=== PATIENT | female | born 1985 | race Caucasian/White ===

== ENCOUNTER 2018-05-12 18:50 | Outpatient (CLI) | payer OTHER, SELFPAY ==
[2018-05-12 19:34] LABS: Color, Urine Yellow (Yellow); Glucose, Dipstick Normal (Normal); Ketone-Dipstick Negative (Negative); Leukocyte Esterase-Dipstick 25 /ul (Negative); Nitrite-Dipstick Negative (Negative); Occult Blood-Urine Negative /ul (Negative); Protein-Dipstick Negative (Negative); Urine Bilirubin Dipstick Negative (Negative); Urine Clarity Clear (Clear); Urine Urobilinogen Normal (Normal); Urine pH 6.5 (5.0 - 8.0)
[2018-05-12 19:54] LABS: ROM Internal Control Test YES-OK TO RESULT pt. (Internal QC); ROM Patient Test Negative (Negative)
[2018-05-12 19:55] LABS: Record Kit Lot#, ROM+ J7836
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
== END 2018-05-12 20:50 | disposition home or self-care (01) ==
LOC: WPOUT 18:54 → WP 18:55
PROVIDERS: Family Provider Student in an Organized Health Care Education/Training Program; PCP Student in an Organized Health Care Education/Training Program; Referring Provider Obstetrics & Gynecology; Visit Provider Obstetrics & Gynecology
DX: O71.89 Other specified obstetric trauma (principal); Z3A.30 30 weeks gestation of pregnancy
CPT/HCPCS: 59025; 59050; 81002; 84112; 99218; G0378

== ENCOUNTER 2018-07-19 21:00 | Inpatient (IN) | payer OTHER, SELFPAY ==
[2018-07-19 20:27] VITALS: BMI 36.3
[2018-07-19 20:55] LABS: ROM Internal Control Test YES-OK TO RESULT pt. (Internal QC)
[2018-07-19 20:56] LABS: ROM Patient Test POSITIVE (Negative)
[2018-07-19] MEDS: Lactated Ringers 1,000 ML 50 ML IV ×2 (21:30→22:53)
[2018-07-19 21:55] LABS: Absolute Lymphocyte Count 2.72 X10^3/ul (0.83-4.51); Absolute Neutrophil Count 8.3 X10^3/uL (2.0-7.7); Basophil# 0.01 X10^3/uL; Basophil% 0.1 % (0-1); Eosinophil# 0.06 X10^3/uL; Eosinophils% 0.5 % (0-5); Hematocrit 33.9 % (37-47); Hemoglobin 11.6 g/dl (12.0-15.0); Lymphocyte # 2.72 X10^3/ul (4.0); Lymphocyte % 22.8 % (19-41); Mean Corp Hgb Conc 34.2 g/gl (32-36); Mean Corpuscular Hgb 32.4 pg (27.0-32.0); Mean Corpuscular Volume 94.7 fL (81-99); Mean Platelet Vol. 9.6 fl (6.2-12.0); Monocyte# 0.82 X10^3/uL; Monocyte% 6.9 % (0-10); Neutrophil % 69.4 % (47-70); Platelet Count 244 K/mm3 (150-450); RBC Distribution Width CV 12.8 % (11.6-14.6); RBC Distribution Width SD 43.7 fl (35.1-43.9); Red Blood Count 3.58 M/mm3 (4.2-5.4)
[2018-07-19 21:58] LABS: POSITIVE COUNT NO; POSITIVE DIFFERENTIAL NO; POSITIVE MORPHOLOGY NO
[2018-07-19] MEDS: Oxytocin 30 units/NS 500 ml 30 UNITS/500 ML IV.SOLN IV (23:01)
[2018-07-20] MEDS: fentaNYL-bupivacaine (epidural) 100 ML BAG EPIDURAL (00:52)
[2018-07-20] MEDS: Oxytocin 30 units/NS 500 ml 30 UNITS/500 ML IV.SOLN 334 UNITS IV (02:50)
--- NOTE | 2018-07-20 03:10 | PCM.HP.OB ---
- Problem List (1) 39 weeks gestation of Status: Acute (2) AMA (advanced maternal age) multigravida 35+ Status: Acute History Date of Admission: 07/20/18 Final KALEB: 07/20/18 Gestational age: 40 Weeks and 0 Days History of this : This is a 33 year-old, G2, P1001, who presents at 39w6d gestational age with SROM at home for clear fluid. +Irregular ctx's. Medical History: Medical History (Last Updated 07/20/18 @ 03:12 by Salma Lund DO) Anemia affecting O99.019 Asymptomatic bacteriuria during O99.89, R82.71 Family history of neurofibromatosis Z82.79 Allergies Sulfa (Sulfonamide Antibiotics) Adverse Reaction (Verified 07/19/18 20:29) Vomiting Home Medications: Home Medications Cholecalciferol (Vitamin D3) [Vitamin D3] 6,000 unit PO DAILY 06/15/15 Vits [Prenatabs FA ] 1 tablet PO DAILY 06/15/15 Ferrous Sulfate DAILY 05/12/18 Smoking Status: Never smoker Number of Fetus(es): 1 Heart Tracing: Category 1 TOCO Analysis: +Irregular ctx's History Past Pregnancies: Past Pregnancies Delivery Date Name GA/Weeks Outcome Route Weight Infant Gender Labor Length Anesthesia Delivery Location Provider FOB 39 7lb 12oz Labs: GBS pos Rh pos RI Syphilis neg HIV neg Hep B neg 1 hr GTT WNL Hgb 10.5 Expected Delivery Method: Spontaneous Vaginal Review of Systems Gynecological: Reports: - - +LOF Physical Exam General: Alert, No apparent distress HEENT: Atraumatic Lungs: - - No increased resp effort Abdomen: Soft, Gravid Extremities:: No edema Neurological: Neuro grossly intact [employer]: Normal external genitalia Estimated gestational size: Appropriate for gestational size Presentation: Cephalic Cervix Dilation (cm): 3 - per RN on admission Assessment/Plan All Active Problems 39 weeks gestation of (Acute) AMA (advanced maternal age) multigravida 35+ (Acute) This is a 33 year-old, G2, P1001, at 39 weeks gestational age who presents from home with SROM for clear fluid. - Admit to L&D for routine intrapartum care for PROM - Pitocin if no cervical change - PCN for GBS positive - Epidural prn
[2018-07-20] MEDS: Oxytocin 30 units/NS 500 ml 30 UNITS/500 ML IV.SOLN 167 UNITS IV (03:20)
--- NOTE | 2018-07-20 03:30 | OP.PCM_ITS ---
Problem List (1) 39 weeks gestation of Status: Acute (2) AMA (advanced maternal age) multigravida 35+ Status: Acute Report of Operation Date of Procedure: 07/20/18 Pre-Operative Diagnosis: PROM at 39 weeks, AMA Post-Operative Diagnosis: As above Surgery/Procedure Performed:: Description of Surgical Findings:: Male in ROP position. Loose nuchal cord x 1. Clear fluid. Intact and normal appearing placenta with 3 vessel cord Type of Anesthesia:: Epidural Special Medications: None Specimen's removed: Placenta Drains: Kim Estimated Blood Loss (mL): 200 Description of Procedure: Patient presented to L&D with PROM. She was 3 cm with irregular ctx's. Pitocin was started and titrated to 4 mu/min. Patient progressed to complete. Complete and pushing with delivery of head, shoulders, and body of infant without force or delay. VMI delivered atraumatically and placed on mother's abdomen. Cord was clamped and cut by FOB after 60 sec delay. Placenta delivered intact with ut erine massage. Uterus explored x 1 with no retained products noted. Bleeding hemostatic and fundus firm. 2nd degree perineal laceration repaired in usual sterile fashion. Grafts/Implants Used: None - Complications None - Admit VTE Documentation VTE Present on Admission: No VTE Mechan Device Prophylaxis: None VTE Pharm Prophylaxis ordered?: No Vaginal Delivery Maternal Presentation: Spontaneous Rupture of Membranes Method of Induction: Pitocin Amniotic Membrane Rupture Type: Spontaneous at home Amniotic Fluid Description: Clear Final KALEB: 07/20/18 Gestational age: 40 Weeks and 0 Days Date of Procedure: 07/20/18 Pre-Operative Diagnosis: PROM at 39 wks gestation, AMA Post-Operative Diagnosis: As above, delivered at 40 wks gestation Surgery/ Procedure Performed: Spontaneous Vaginal Delivery Type of Anesthesia: Epidural Presentation: ROP Placental Delivery Description: Expressed Cord Vessel Description: 3 Vessels Nuchal Cord Compression: Without compression Cord Entanglement: Around neck x 1, loose Estimated Blood Loss: Kim Infant A gender: Male (1 minute): 9 (5 minute): 9 Episiotomy Description: None Laceration: 2nd degree Medications given after delivery: IV Pitocin Complications: None
[2018-07-20] MEDS: Ondansetron 4 MG/2 ML Vial IV (03:55)
[2018-07-20] MEDS: Ibuprofen 600 MG Tablet PO ×3 (03:58→19:08)
[2018-07-20] MEDS: 0.9% Saline Lock 10 ML Syringe IV (04:23)
[2018-07-20 08:45] VITALS: BP 111/68; PULSE 74; RESP 20; TEMP 36.7; O2SAT 97
[2018-07-20 13:01] VITALS: BP 113/51; PULSE 67; TEMP 36.9
[2018-07-20 16:00] VITALS: PULSE 66; RESP 18; TEMP 37.1
[2018-07-20 16:20] VITALS: BP 117/50; PULSE 70
[2018-07-20 19:30] VITALS: BP 112/52; PULSE 68; RESP 18; TEMP 37.1
[2018-07-20] MEDS: Senna/Docusate Sodium 1 Tablet PO (20:50)
[2018-07-20] MEDS: Acetaminophen 500 MG Tablet 1000 MG PO (23:45)
[2018-07-21] VITALS: BP 110/72; PULSE 62; RESP 18; TEMP 37
--- NOTE | 2018-07-21 07:20 | PCM.PN.OB ---
Patient Problems: Active and Suspected Problems (Last Updated 07/20/18 @ 03:12 by Salma Lund DO) 39 weeks gestation of (Acute) AMA (advanced maternal age) multigravida 35+ (Acute) Subjective: Patient doing well. Pain controlled. Lochia normal. No lightheadedness, dizziness, CP, SOB, leg pain. Ambulating and voiding without difficulty. Gina reg diet without N/V. without complaints - Physical Exam General: Alert, No apparent distress HEENT: Atraumatic Lungs: - - No increased resp effort Abdomen: Soft, Non Tender, - - FF Extremities: No Calf Tenderness Skin: No rashes Neurological: Neuro grossly intact Psych/Mental Status: Normal Affect, Appropriate Vital Signs Temp Pulse Resp BP Pulse Ox 98.6 F 62 18 110/72 97 07/21/18 00:00 07/21/18 00:00 07/21/18 00:00 07/21/18 00:00 07/20/18 08:45 Oxygen Delivery Method Room Air Weight: 206 lb 12.697 oz Body Mass Index (BMI) 36.3 Intake and Output for Last 24 Hours 07/19/18 07/20/18 07/21/18 23:59 23:59 23:59 Intake Total 2261 / 2261 Output Total 1800 / 1800 Balance 461 / 461 Medical Necessity - Tobacco Use Smoking Status: Never smoker Assessment/Plan All Active Problems (Last Updated 07/20/18 @ 03:12 by Salma Lund DO) 39 weeks gestation of (Acute) AMA (advanced maternal age) multigravida 35+ (Acute) PPD#1 s/p - Doing well - Pt desires to go home today - D/c home with discharge instructions and follow up reviewed
--- NOTE | 2018-07-21 07:24 | DCINST_ITS ---
Discharge Diet: No Restrictions Discharge Activity: May Shower, May Take a Tub Bath May resume sexual activity in: 6 weeks Weight Bearing Status: Full weight bearing Lifting Restrictions: None Call your doctor if you observe: Fever of 101 or Higher, Inability to urinate, Inability to have a bowel movement, Using more than one pad per hour, Shortness of breath, Dizziness, Chest pain, Increased palpitations (irregular heartbeat), Calf discomfort, Uncontrolled pain Instructions: After a Vaginal Additional Instructions: If you experience any of the following, contact your healthcare provider. * Bleeding that soaks a pad every hour for 2 hours * Fever 100.4 or higher * Unrelieved incision or abdominal pain * Swelling, redness, discharge or bleeding from your incision or episiotomy site * Your incision begins to separate * Problems urinating (including inability to urinate or burning while urinating). * Visual changes * Severe headache * Flu-like symptoms * Pain or redness in one of both of your breasts * Pain, warmth, tenderness or swelling in your legs, especially the calf area * Frequent nausea and vomiting * Symptoms of depression or anxiety If you experience any of the following, call 911 or go to the nearest Emergency Room. * Chest pain * Problems breathing * Seizure activity * Partial or complete paralysis of a body part, slurred speech, weakness or drooping of the face, or a sudden inability to walk or hold your balance Allergies/Adverse Reactions: Allergies Sulfa (Sulfonamide Antibiotics) Adverse Reaction (Verified 07/19/18 20:29) Vomiting Medications to take at Discharge Cholecalciferol (Vitamin D3) [Vitamin D3] 6,000 unit PO DAILY 06/15/15 Vits [Prenatabs FA ] 1 tablet PO DAILY 06/15/15 Ferrous Sulfate DAILY 05/12/18 Please Follow Up With: Salma Lund DO When: 6 weeks for visit. In 1-2 weeks if you desire Primary Care Physician: Eliot Jacome DO [Primary Care Provider] - Test Results: Test results from this visit will be discussed in further detail at your follow- up appointment, if applicable. Proposed Discharge Date: 07/21/18
[2018-07-21 07:53] VITALS: BP 120/62; PULSE 69; RESP 18; TEMP 36.7
[2018-07-21] MEDS: Ibuprofen 600 MG Tablet PO ×2 (08:00→14:58)
[2018-07-21] MEDS: Acetaminophen 500 MG Tablet 1000 MG PO (11:38)
[2018-07-21 14:13] VITALS: BP 130/79; PULSE 70; RESP 16; TEMP 36.8; O2SAT 98
--- NOTE | 2018-07-27 17:16 | NURSING ---
Follow up phone call made and voicemail left due to not being home. Dex CARDONA
== END 2018-07-21 15:25 | disposition home or self-care (01) | DRG 807 ==
LOC: WPOUT 21:01
PROVIDERS: Admitting Provider Obstetrics & Gynecology; Family Provider Student in an Organized Health Care Education/Training Program; PCP Student in an Organized Health Care Education/Training Program; Referring Provider Obstetrics & Gynecology; Visit Provider Obstetrics & Gynecology
DX: O42.02 Full-term premature rupture of membranes, onset of labor within 24 hours of rupture (principal); Z37.0 Single live birth; O69.81X0 Labor and delivery complicated by cord around neck, without compression, not applicable or unspecified; O70.1 Second degree perineal laceration during delivery; O99.824 Streptococcus B carrier state complicating childbirth; Z3A.39 39 weeks gestation of pregnancy; O99.013 Anemia complicating pregnancy, third trimester; D64.9 Anemia, unspecified
CPT/HCPCS: 59025; 59050; 84112; 85025; 86850; 86900; 99218; J7120; A4216; G0378; J2405

== ENCOUNTER → 2019-02-16 14:26 | Outpatient (CLI) | payer OTHER, SELFPAY ==
[2019-02-16 17:57] LABS: T3 Total - Triiodothyronine 1.62 ng/mL (0.6-1.81); T4 Free Direct 1.32 ng/dL (0.76-1.46); Thyroid Stim Hormone (TSH) 0.01 uIU/mL (0.358-3.74)
[2019-02-18 08:09] LABS: Thyroid Peroxidase AB 10 IU/mL (0-34)
== END ==
PROVIDERS: Family Provider Student in an Organized Health Care Education/Training Program; PCP Student in an Organized Health Care Education/Training Program; Referring Provider Dermatology Pediatric Dermatology; Visit Provider Dermatology Pediatric Dermatology
DX: E05.90 Thyrotoxicosis, unspecified without thyrotoxic crisis or storm (principal); L71.8 Other rosacea
CPT/HCPCS: 36415; 84439; 84443; 84480; 86376